=== PATIENT | male | born 2000 | race Caucasian/White ===

== ENCOUNTER 2019-06-11 23:58 | Emergency (ER) | payer OTHER ==
[~2019-06-11] VITALS: Ht 182.9 cm; Wt 77.3 kg
--- NOTE | 2019-06-12 00:15 | NUR ---
SAME TRIAGE NOTE. PT DENIES HEADACHE, STATES HE FEELS FINE NOW. NO OBVIOUS HEAD INJURY NOTED FROM FALL. VSS. EKG DONE. PT DENIES ANY MEDICAL HX.
--- NOTE | 2019-06-12 00:17 | NUR ---
DENIES DRUG OR ALCOHOL USE.
--- NOTE | 2019-06-12 00:37 | NUR ---
KELBY BOWMAN AT BS NOW.
[2019-06-12 01:14] LABS: BASOPHILS # (AUTO) 0.02 x10^3/uL (0-0.3); BASOPHILS % (AUTO) 0 % (0-1); EOSINOPHILS # (AUTO) 0.08 x10^3/uL (0-0.8); EOSINOPHILS % (AUTO) 1 % (1-7); LYMPHOCYTES # (AUTO) 1.17 x10^3/uL (1-6.1); LYMPHOCYTES % (AUTO) 21 % (22-44); MD NO; MEAN CORPUSCULAR HEMOGLOBIN 32.3 pg (27.5-34.5); MEAN CORPUSCULAR HGB CONC 33.2 g/dL (33.2-36.2); MEAN CORPUSCULAR VOLUME 97.2 fL (81-97); MEAN PLATELET VOLUME 8.8 fL (7.4-10.4); MONOCYTES # (AUTO) 0.43 x10^3/uL (0-1.4); MONOCYTES % (AUTO) 8 % (2-9); NEUTROPHILS # (AUTO) 3.85 x10^3/uL (1.8-8.0); NEUTROPHILS % (AUTO) 69 % (42-75); PLATELET COUNT 243 x10^3/uL (130-400); RED BLOOD COUNT 4.34 x10^6/uL (4.38-5.82); RED CELL DISTRIBUTION WIDTH 12.2 % (9.4-14.8)
[2019-06-12 01:21] LABS: ALBUMIN 4.1 g/dL (3.4-5.0); ANION GAP 4 mmol/L (5-15); CALCIUM 8.8 mg/dL (8.5-10.1); CHLORIDE 108 mmol/L (98-107); CREATININE 1.03 mg/dL (0.7-1.3)
[2019-06-12 01:49] VITALS: BP 130/67
--- NOTE | 2019-06-12 02:04 | NUR ---
D/C INSTRUCTIONS & F/U APPT RV'WD WITH PT, HE VERBALIZES UNDERSTANDING. INSTRUCTED PT TO RETURN TO ED FOR ANY CONCERNING SYMTPOMS. AMBULATED OUT OF ED WITH FRIEND WITHOUT DIFFICULTY, STATES HE WILL GO HOME AND EAT PIZZA & DRINK FLUIDS.
== END 2019-06-12 02:07 | disposition home or self-care (01) ==
LOC: ED 23:59
DX: S06.9X1A Unspecified intracranial injury with loss of consciousness of 30 minutes or less, initial encounter (principal); R55 Syncope and collapse; W01.0XXA Fall on same level from slipping, tripping and stumbling without subsequent striking against object, initial encounter; Y93.89 Activity, other specified; Y92.89 Other specified places as the place of occurrence of the external cause; Y99.8 Other external cause status
CPT/HCPCS: 36415; 70450; 80048; 82040; 82962; 85025; 93005; 99284